=== PATIENT | female | born 1985 | race Caucasian/White ===

== ENCOUNTER → 2017-04-09 | Outpatient (CLI) | payer BC ==
[2017-04-09 19:01] LABS: URINE APPEARANCE CLEAR (CLEAR); URINE BILIRUBIN NEG (NEG); URINE COLOR YELLOW; URINE NITRITE NEG (NEG); URINE PH 6.5 (4.5-7.5); URINE SPECIFIC GRAVITY 1.016 (1.000-1.030); UROBILINOGEN NEG (NEG)
[2017-04-09 19:03] LABS: MANUAL MICROSCOPIC REQUIRED? NO; REVIEW REQ? NO
== END | disposition home or self-care (01) ==
LOC: C.LABSPEC 17:05
PROVIDERS: ATTEND Physician Assistant
DX: R39.9 Unspecified symptoms and signs involving the genitourinary system (principal)

== ENCOUNTER → 2017-05-31 | Outpatient (CLI) | payer BC ==
[2017-05-31 18:02] LABS: URINE APPEARANCE CLEAR (CLEAR); URINE BILIRUBIN NEG (NEG); URINE COLOR YELLOW; URINE NITRITE NEG (NEG); URINE PH 6.5 (4.5-7.5); URINE SPECIFIC GRAVITY 1.011 (1.000-1.030); UROBILINOGEN NEG (NEG)
[2017-05-31 18:04] LABS: MANUAL MICROSCOPIC REQUIRED? NO; REVIEW REQ? NO
== END | disposition home or self-care (01) ==
LOC: C.LABSPEC 17:26
PROVIDERS: ATTEND Obstetrics & Gynecology
DX: Z34.03 Encounter for supervision of normal first pregnancy, third trimester (principal); Z3A.00 Weeks of gestation of pregnancy not specified

== ENCOUNTER → 2017-06-07 | Outpatient (CLI) | payer BC ==
[2017-06-07 17:32] LABS: BASO % 0.3 %; BASO ABS # 0.02 K/uL (0-0.2); COMPLETE YES; EOS % 1.3 %; IG% 0.1 %; LYMPH ABS # 1.87 K/uL (1.2-3.4); MEAN CELL VOLUME 88.7 fL (80-100); MEAN CORPUSCULAR HEMOGLOBIN 31.3 pg (25-34); MEAN CORPUSCULAR HGB CONC 35.3 g/dl (32-36); MEAN PLATELET VOLUME 11.1 fL (7.4-10.4); MONO % 5.8 %; NEUT % 67.5 %; PLATELET COUNT 186 K/uL (130-400); RED BLOOD COUNT 4.06 M/uL (4.2-5.4); WHITE BLOOD COUNT 7.47 K/uL (4.8-10.8)
== END | disposition home or self-care (01) ==
LOC: C.LAB1850 16:31
PROVIDERS: ATTEND Obstetrics & Gynecology
DX: Z34.01 Encounter for supervision of normal first pregnancy, first trimester (principal)

== ENCOUNTER → 2017-06-07 | Outpatient (CLI) | payer BC ==
[2017-06-11 08:03] LABS: CHLAMYDIA TRACH RNA*** NOT DETECTED (NOT DETECTED); GC (NEIS GONORRHOEAE)RNA** NOT DETECTED (NOT DETECTED)
== END | disposition home or self-care (01) ==
LOC: C.LABSPEC 17:35
PROVIDERS: ATTEND Obstetrics & Gynecology
DX: Z34.01 Encounter for supervision of normal first pregnancy, first trimester (principal)

== ENCOUNTER → 2017-08-11 | Outpatient (CLI) | payer BC | END | disposition home or self-care (01) | LOC: C.LAB 07:10 | PROVIDERS: ATTEND Obstetrics & Gynecology | DX: O28.1 Abnormal biochemical finding on antenatal screening of mother (principal); Z3A.00 Weeks of gestation of pregnancy not specified ==

== ENCOUNTER → 2017-10-25 | Outpatient (CLI) | payer OTHER ==
[2017-10-25 10:00] LABS: HEMATOCRIT 36.8 % (37-47)
== END | disposition home or self-care (01) ==
LOC: C.LAB 08:49
PROVIDERS: ATTEND Obstetrics & Gynecology
DX: Z34.02 Encounter for supervision of normal first pregnancy, second trimester (principal)

== ENCOUNTER → 2017-11-03 | Outpatient (CLI) | payer OTHER | END | disposition home or self-care (01) | LOC: C.LAB 07:13 | PROVIDERS: ATTEND Obstetrics & Gynecology | DX: O28.1 Abnormal biochemical finding on antenatal screening of mother (principal) ==

== ENCOUNTER → 2017-12-21 | Outpatient (CLI) | payer OTHER | END | disposition home or self-care (01) | LOC: C.LABSPEC 17:32 | PROVIDERS: ATTEND Obstetrics & Gynecology | DX: Z34.03 Encounter for supervision of normal first pregnancy, third trimester (principal) ==

== ENCOUNTER 2018-01-19 21:49 | Inpatient (IN) | payer OTHER ==
[~2018-01-19] VITALS: Ht 154.9 cm; Wt 58.0 kg
[2018-01-19] MEDS ORDERED: LACTATED RINGER'S 1000ML 1,000 ML IV PRN (22:30)
[2018-01-19] MEDS ORDERED: PRENTAB26 PO (22:41)
[2018-01-19 22:49] VITALS: Ht 154.9 cm; Wt 58.0 kg
[2018-01-19 23:03] LABS: HEMATOCRIT 41.7 % (37-47); HEMOGLOBIN 14.6 g/dL (12.0-16.0); MEAN CELL VOLUME 91.4 fL (80-100); RED CELL DISTRIBUTION WIDTH CV 12.3 % (11.5-14.5); RED CELL DISTRIBUTION WIDTH SD 41.3 fL (36.4-46.3); WHITE BLOOD COUNT 12.33 K/uL (4.8-10.8)
[2018-01-19 23:12] LABS: MEAN PLATELET VOLUME 13.4 fL (7.4-10.4); PLATELET COUNT 120 K/uL (130-400)
[2018-01-20] MEDS ORDERED: OXYTOCIN 30 UNITS/500ML NSS IV ONE (02:17)
[2018-01-20] MEDS ORDERED: BENZOCAINE 20% AER SPR 82.5 GM CAN EXT PRN (03:00)
[2018-01-20] MEDS ORDERED: ACETAMINOPHEN 325 MG TAB PO PRN (03:00)
[2018-01-20] MEDS ORDERED: SUPERCREAM 0.870 % 15GM JAR EXT PRN (03:00)
[2018-01-20] MEDS ORDERED: OXYTOCIN 30 UNITS/500ML NSS IV PRN (03:00)
[2018-01-20] MEDS ORDERED: OXYCODONE/ACETAMINOPHEN 5-325 TAB PO PRN (03:00)
[2018-01-20] MEDS ORDERED: LANOLIN OINT EXT PRN (03:00)
[2018-01-20] MEDS ORDERED: ACETAMINOPHEN/CODEINE 300/30MG TAB PO PRN ×2 (03:00)
[2018-01-20] MEDS ORDERED: HYDROCORTISONE ACETATE 25 MG SUPP PR PRN (03:00)
[2018-01-20] MEDS ORDERED: DIPHTHERIA/TETANUS/PERTUSSIS 0.5 ML SYR/VIAL IM. ONE (03:00)
[2018-01-20 05:50] VITALS: BP 127/81; PULSE 88; TEMP 36.8
--- NOTE | 2018-01-20 06:45 | DELIVERY SUMMARY ---
DATE OF OPERATION: 01/20/2018 VAGINAL DELIVERY NOTE Jessica delivered on 01/20/2018. She presented after spontaneous rupture of membranes at term, group B strep negative, in active labor at 5 cm. She wished to be un-medicated and rapidly progressed to fully dilated. Once there, she pushed well, however, there was a vaginal band of tissue and heart rate was in the 60s for approximately 5 minutes. After failure to improve with oxygen, I did offer and recommend a small midline episiotomy and the patient agreed. Small 1 cm midline episiotomy made with scissors. Baby was then delivered on the next contraction and head was delivered and then mouth and then nares suctioned. Loose nuchal cord passed over the head and then baby delivered without any excessive force. Live vigorous male , clear fluid. Cord clamped and cut. Cord gas was obtained. Cord blood obtained. Placenta removed with gentle traction. Local anesthetic injected and midline episiotomy without extension repaired with 3-0 Vicryl. Estimated blood loss 100 mL. Sponge and instrument counts correct. Rectal exam negative for sutures or defects. IV Pitocin started after delivery of the placenta. I attest to the content of the Intraoperative Record and any orders documented therein. Any exception s are noted below.
--- NOTE | 2018-01-20 07:39 | Progress Note ---
Subjective Jan 20, 2018. Subjective conversation w/ patient, physical exam, lab review Ambulation: ambulating normally Voiding: no voiding problems Diet Tolerance: Regular Diet Lochia: Small Feeding Type: Breast Feeding Objective Vital Signs Date Time Temp Pulse Resp B/P (MAP) Pulse Ox O2 Delivery O2 Flow Rate FiO2 01/20/18 05:50 36.8 88 18 127/81 01/20/18 05:50 Room Air Physical Exam General Appearance: WELL-APPEARING Abdomen: non tender Fundus: Firm Extremities: no calf tenderness Laboratory Results Last 24 Hours Test 01/19/18 22:42 White Blood Count 12.33 K/uL Red Blood Count 4.56 M/uL Hemoglobin 14.6 g/dL Hematocrit 41.7 % Mean Corpuscular Volume 91.4 fL Mean Corpuscular Hemoglobin 32.0 pg Mean Corpuscular Hemoglobin Concent 35.0 g/dl RDW Standard Deviation 41.3 fL RDW Coefficient of Variation 12.3 % Platelet Count 120 K/uL Mean Platelet Volume 13.4 fL Platelet Estimate DECREASED Assessment and Plan Post- Day#: 1 Continue Routine Care: Doing well day #1 no heavy bleeding no extremity pain
[2018-01-20] MEDS: DOCUSATE SODIUM 100 MG CAP PO SCH ×2 (08:18→20:11)
[2018-01-20] MEDS: PRENATAL VITAMIN TAB PO SCH (08:18)
[2018-01-20 08:30] VITALS: BP 127/83; PULSE 75; TEMP 36.5; O2SAT 99
[2018-01-20 12:20] VITALS: BP 135/82; PULSE 76; TEMP 36.7; O2SAT 99
[2018-01-20 15:30] VITALS: BP 119/79; PULSE 75; TEMP 36.8
[2018-01-20] MEDS: IBUPROFEN 600 MG TAB PO PRN (17:13)
[2018-01-20 20:20] VITALS: BP 118/76; PULSE 84; TEMP 36.7; O2SAT 98
[2018-01-21 00:30] VITALS: BP 118/69; PULSE 84; TEMP 36.8; O2SAT 96
--- NOTE | 2018-01-21 06:29 | Progress Note ---
Subjective Jan 21, 2018. Subjective conversation w/ patient, physical exam, chart review, lab review Ambulation: ambulating normally Voiding: no voiding problems Passing Gas: Yes Diet Tolerance: Regular Diet Lochia: Small Feeding Type: Breast Feeding Review of Systems Constitutional: No fever, No chills Respiratory: No cough, No shortness of breath Cardiac: No chest pain, No palpitations Abdomen: No pain, No nausea, No vomiting Female : No dysuria Objective Vital Signs Date Time Temp Pulse Resp B/P (MAP) Pulse Ox O2 Delivery O2 Flow Rate FiO2 01/21/18 00:30 36.8 84 16 118/69 (85) 96 Room Air 01/21/18 00:30 Room Air 01/20/18 20:20 36.7 84 16 118/76 (90) 98 Room Air 01/20/18 15:30 Room Air 01/20/18 15:30 36.8 75 20 119/79 (92) Room Air 01/20/18 12:20 36.7 76 16 135/82 (99) 99 Room Air 01/20/18 08:30 36.5 75 16 127/83 (98) 99 Room Air Physical Exam General Appearance: WELL-APPEARING, WD/WN, NO APPARENT DISTRESS Respiratory/Chest: lungs clear, no accessory muscle use Cardiovascular: regular rate, rhythm, no murmur Abdomen: non tender, soft Fundus: Firm, Relation to Umbilicus (at the level of the u) Extremities: non-tender, normal inspection Laboratory Results Last 24 Hours Test 01/21/18 04:44 Assessment and Plan Post- Day#: 2 Continue Routine Care: 32, F , O+/GBS-/RI, PPD1. Reviewed vital, WNL. Hgb 14.6 on admission, pending this am. No signs or sx of anemia. Patient doing well clinically. Preparing patient for discharge. Plan; 1. Cont pp care; ambulate, support BF, monitor lochia, control pain 2. Discussed dc planning Resident Physician Supervision Note: I was present with Dr. Zuleta during the history and exam. I discussed the case with the resident and agree with the findings and plan as documented in the note. Any exceptions or clarifications are listed here: [None] Documented By: Gianluca Vargas
--- NOTE | 2018-01-21 06:30 | Discharge Instructions ---
Discharge Instructions Date of Service Jan 21, 2018. Admission Reason for Admission: Normal Labor Discharge Discharge Diagnosis / Problem: vaginal de;waqas Discharge Goals Goal(s): Routine recovery after delivery Medications Continue Dispensed Medications: supercream, dermaplast, tucks, lansinoh Activity Recommendations Activity Limitations: per Instructions/Follow-up section . Instructions / Follow-Up Instructions / Follow-Up ACTIVITY RECOMMENDATIONS: * Gradual return to full activity over the next 2-3 weeks. * No lifting - nothing heavier than baby over the next 2-3 weeks. * Do not engage in vigorous exercise, sexual activity or sports until cleared by your physician. * Do not drive or operate any motorized equipment until cleared by your physician. * You may shower/bathe daily. MEDICATIONS: For discomfort or pain, you may use Acetaminophen (Tylenol), Ibuprofen (Advil), or Naproxen (Aleve) following the package directions. For constipation you may use Colace following the package directions. BREAST CARE: If you are not breast feeding: * Wear a supportive bra 24 hours a day for one to two weeks. * Avoid stimulating your breasts and nipples as much as possible during the first few weeks after delivery. * When taking a shower, have the warm water hit your back, not breasts. * When your breasts feel full, apply ice packs. Usually three to four times a day helps ease the discomfort. * Take a mild pain medication (Tylenol / Motrin) when you are uncomfortable. If breast feeding: * Use breast milk to lubricate nipples. Lansinoh cream may be used for sore nipples. You do not need to remove cream prior to breast feeding. If using a different brand of cream, check the label for directions regarding removal of cream prior to nursing. * Wear a supportive bra. * If having problems with breasts or breast feeding, call a managing consultant or your health care provider. EPISIOTOMY CARE: After delivery, if you have an episiotomy (stitches), the following steps will ease discomfort and aid healing. * For the first 24 hours after delivery, place ice packs next to your episiotomy to help reduce swelling. * After the first 24 hour-period, sitz baths, either portable or in the tub, are suggested. A shower with a shower arm sprayed over the episiotomy may be comforting. * Helen care should be done after each voiding and bowel movement. Squirt warm water from a plastic bottle over the perineum (region of the body between the anus and urinary opening) and pat dry. * Use Dermoplast to ease discomfort. Shake container. [place] directly over the episiotomy. Place a Tucks on a clean sanitary pad next to your episiotomy. SPECIAL CARE INSTRUCTIONS: When you are discharged from the hospital, it is important for you to follow the instructions listed below: * During the first week at home, you should be able to care for yourself and your baby. In addition, the usual light household activities are encouraged. * Limit your activities to the way you feel. Do not try to clean the house or move furniture. Be sensible. * If you actively engage in sports and have done so up until the time of your delivery, you may resume these activities as soon as you feel able. This may take up to one month or even longer. Use good judgment. * Continue to take your vitamins for at least six weeks after the of your baby. * Your diet need not be limited unless you were on a special diet before your delivery. Breast-feeding mothers need around 2500 calories per day and at least 64-80 ounces of fluid per day (8 to 10 glasses). * You should eat foods from the four major food groups. Crash diets or fad diets are to be avoided. Eating lean meats, fresh fruits and vegetables, low-fat dairy products, high fiber foods and a regular exercise program, will help you get back to your pre- weight without putting your health at risk. * Constipation is sometimes a problem after delivery. Take a mild laxative as needed. If breast feeding, Milk of Magnesia is acceptable to use. You may use a suppository or Fleets enema if no episiotomy. * A daily shower or tub bath is suggested. Be sure to thoroughly and gently dry the perineum. * A bloody vaginal discharge will usually continue until around four weeks post . A small amount of bleeding may continue for as long as six weeks. Vaginal discharge changes from the bright red bleeding after delivery to pink then brownish and finally yellowish-pink before becoming white and disappearing. * Bleeding may increase with activity. Your first period may come in 4-8 weeks. If you are breast feeding, your period may be delayed even longer. * [place] (sex) can begin whenever both you and your partner feel comfortable and do not have any form of genital infection. It is recommended that you wait at least six weeks for internal and external healing to occur. If you have questions, please talk to your health care practitioner. A condom should be used to prevent infection and . * Foreplay, gentle intercourse and lubrication is very important the first several times to prevent pain. A water-based lubricant such as K-Y jelly or Astroglide may be used. * If you have RH negative blood and your baby is RH positive, you will receive RHOGAM by injection prior to discharge. The nurse will give you a card to keep with you that has the date and place that you received RHOGAM after delivery. * During your care, you had a Rubella screen done to check for the presence of rubella antibodies in your blood. If your test was negative, you will receive a Rubella vaccine prior to discharge. This vaccine may cause a fever, soreness at the injection site and flu-like symptoms. If these symptoms persist, notify your health care practitioner. is not advised for one month after a Rubella vaccine. * Verbalizes understanding of car seat law as reviewed with patient nursing. * Car Seat hand-out given and reviewed with patient by nursing. * Shaken baby information reviewed with patient by nursing. Call you doctor if: * Heavy bleeding (saturating several pads an hour) or passing clots the size of your fist. * A fever >101 degrees F (38.3 degrees C) on two occasions four hours apart and /or chills. * Unusual pain in the pelvic or vaginal areas. * "Baby Blues" lasting longer than two weeks. If you have any questions or concerns, call your health care practitioner at . FOLLOW UP VISIT: * Please call the office at to schedule a 6 week examination. It is important you keep this appointment. It is important for you to make arrangements for either yearly or twice yearly check-ups thereafter. Current Hospital Diet Patient's current hospital diet: Regular OB Diet Discharge Diet Recommended Diet: Regular Diet, Regular OB Diet Pending Studies Studies pending at discharge: no Medical Emergencies . Who to Call and When: Medical Emergencies: If at any time you feel your situation is an emergency, please call 911 immediately. . Non-Emergent Contact Non-Emergency issues call your: Primary Care Provider, Puppy Sitter . . "Provider Documentation" section prepared by Ricardo Zuleta. .
[2018-01-21] MEDS: IBUPROFEN 600 MG TAB PO PRN ×2 (06:39→20:00)
[2018-01-21 07:14] LABS: HEMATOCRIT 34.5 % (37-47); HEMOGLOBIN 12.1 g/dL (12.0-16.0)
[2018-01-21 08:00] VITALS: O2SAT 97
[2018-01-21 08:06] VITALS: O2SAT 97
[2018-01-21 08:12] VITALS: BP 119/74; PULSE 74; TEMP 36.8; O2SAT 97
[2018-01-21] MEDS: PRENATAL VITAMIN TAB PO SCH (08:17)
[2018-01-21] MEDS: DOCUSATE SODIUM 100 MG CAP PO SCH ×2 (08:17→19:59)
[2018-01-21 15:15] VITALS: BP 112/76; PULSE 73; TEMP 37.2; O2SAT 98
[2018-01-21] MEDS ORDERED: BISACODYL 5 MG TABEC PO SCH (20:00)
[2018-01-21 23:35] VITALS: BP 112/74; PULSE 85; TEMP 36.5; O2SAT 98
--- NOTE | 2018-01-22 06:58 | Progress Note ---
Subjective Jan 22, 2018. Subjective conversation w/ patient, physical exam, chart review, lab review Ambulation: ambulating normally Voiding: no voiding problems Passing Gas: Yes Diet Tolerance: Regular Diet Lochia: Small Feeding Type: Breast Feeding Review of Systems Constitutional: No fever, No chills Respiratory: No cough, No shortness of breath Cardiac: No chest pain, No palpitations Abdomen: No pain, No nausea, No vomiting Female : No dysuria Objective Vital Signs Date Time Temp Pulse Resp B/P (MAP) Pulse Ox O2 Delivery O2 Flow Rate FiO2 01/21/18 23:35 98 Room Air 01/21/18 23:35 36.5 85 18 112/74 (87) 98 Room Air 01/21/18 15:15 37.2 73 16 112/76 (88) 98 Room Air 01/21/18 15:15 98 Room Air 01/21/18 08:12 36.8 74 14 119/74 (89) 97 Room Air 01/21/18 08:06 97 Room Air 01/21/18 08:00 97 Room Air Physical Exam General Appearance: WELL-APPEARING, WD/WN, NO APPARENT DISTRESS Respiratory/Chest: lungs clear, no respiratory distress Cardiovascular: regular rate, rhythm, no murmur Abdomen: non tender, soft Fundus: Firm, Relation to Umbilicus (1 cm below u) Extremities: non-tender, normal inspection Laboratory Results Last 24 Hours Test 01/21/18 07:02 01/22/18 06:39 Hemoglobin 12.1 g/dL Hematocrit 34.5 % Assessment and Plan Post- Day#: 2 Continue Routine Care: Resident Physician Supervision Note: I interviewed and examined the patient. Discussed with Dr. Justus Zuleta and agree with findings and plan as documented in the note. Any exceptions or clarifications are listed here: [None] Documented By: Marilia Hutchinson Vilma 32, F , O+/GBS-/RI, PPD2. Reviewed vital, WNL. Hgb 14.6 on admission---12.1 on 01/21, pending this am. No signs or sx of anemia. Patient doing well clinically. Preparing patient for discharge. Plan; 1. Cont pp care; ambulate, support BF, monitor lochia, control pain 2. Discussed dc planning
[2018-01-22] MEDS ORDERED: BISACODYL 10 MG SUPP PR PRN (07:00)
[2018-01-22 07:01] LABS: HEMATOCRIT 35.2 % (37-47); HEMOGLOBIN 12.3 g/dL (12.0-16.0); MEAN CELL VOLUME 91.9 fL (80-100); MEAN CORPUSCULAR HEMOGLOBIN 32.1 pg (25-34); MEAN CORPUSCULAR HGB CONC 34.9 g/dl (32-36); MEAN PLATELET VOLUME 11.7 fL (7.4-10.4); PLATELET COUNT 120 K/uL (130-400); RED CELL DISTRIBUTION WIDTH CV 12.6 % (11.5-14.5); RED CELL DISTRIBUTION WIDTH SD 42.1 fL (36.4-46.3); WHITE BLOOD COUNT 9.25 K/uL (4.8-10.8)
[2018-01-22] MEDS: DOCUSATE SODIUM 100 MG CAP PO SCH (07:57)
[2018-01-22] MEDS: PRENATAL VITAMIN TAB PO SCH (07:57)
[2018-01-22 08:00] VITALS: BP 125/80; PULSE 87; TEMP 36.8
[2018-01-22 12:10] VITALS: BP_DIAS 80; PULSE 87; TEMP 36.8
== END 2018-01-22 12:12 | disposition home or self-care (01) | DRG 775 ==
LOC: C.LD 21:49 → C.OPB 21:49 → C.LD 22:31 → C.OBG 01-20 05:39
PROVIDERS: ADMIT Obstetrics & Gynecology; ATTEND Obstetrics & Gynecology
PROC: 0W8NXZZ Division of Female Perineum, External Approach (ICD-10-PCS; principal; 2018-01-20)
PROC: 10E0XZZ Delivery of Products of Conception, External Approach (ICD-10-PCS; principal; 2018-01-20)
DX: O69.81X0 Labor and delivery complicated by cord around neck, without compression, not applicable or unspecified (principal); O76 Abnormality in fetal heart rate and rhythm complicating labor and delivery; Z3A.40 40 weeks gestation of pregnancy; Z37.0 Single live birth

== ENCOUNTER 2021-05-23 23:34 | Inpatient (IN) ==
[2021-05-24] MEDS ORDERED: LACTATED RINGER'S 1,000 ML IV SCH (00:30)
[2021-05-24] MEDS ORDERED: CITRIC ACID/SODIUM CITRATE 15 ML UDC PO ONE (00:45)
[2021-05-24] MEDS ORDERED: ceFAZolin 2000MG 2,000 MG/15 ML SYR IV ONE (00:45)
[2021-05-24] MEDS ORDERED: AZITHROMYCIN 500 MG in DEXTROSE 5% 250 ML IV ONE (00:45)
[2021-05-24] MEDS ORDERED: MoRPHine SULFATE PF 1 MG/ML 10 ML AMP/VIAL ONE (00:51)
--- NOTE | 2021-05-24 01:16 | History & Physical Report ---
Date of Service May 24, 2021 Assessment & Plan (1) Breech presentation: (2) SROM (spontaneous rupture of membranes): Plan: 35 y/o at 39 wga presenting w/ SROM, breech presentation VSS Fetus cat 1 SROM - with breech presentation, plan for CS. Discussed indications, risks, benefits, alternatives with risks including infection, bleeding, injury to adjacent structures (bowel, bladder, ureters, blood vessels, nerves, baby), possible need for blood transfusion and/or life saving hysterectomy, VTE. Consent reviewed in detail w/ pt and signed after all questions answered to her satisfaction. Pt notes rash as a child with penicillin, denies hx anaphylaxis. Plan for ancef and azithromycin for antibx ppx Admission and Anticipated Discharge Date Admission Date: May 24, 2021 History of Present Illness Chief Complaint: LOF Primary Care Provider: David Reinoso DO 35 y/o at 39 wga w/ ROSITA by LMP c/w 1st tri US presents to L&D w/ c/o LOF since 1030 this evening. +FM and ctx that began after LOF, denies VB. 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 Hx: G1 2018 at 40 wks G2 SAB G3 current Menarche 15, q27-29d cycles Denies hx STIs 03/2020 neg cytology, denies hx abnl pap Allergies Allergy/AdvReac Type Severity Reaction Status Date / Time Penicillins Allergy Unknown Rash Verified 05/24/21 00:14 Home Medications Medication Instructions Recorded Confirmed Type albuterol sulfate 90 mcg/actuation 2 puffs INH QID PRN #8.5 gm 12/16/19 05/24/21 Rx aerosol inhaler prenat.vits,luanne,[id number] 1 tab PO PM 10/11/20 05/24/21 History cetirizine 10 mg capsule (Zyrtec) 10 mg PO PM cap 03/22/21 05/24/21 History acetaminophen 325 mg tablet 325 mg PO QID PRN 05/18/21 05/24/21 History (Tylenol) calcium carbonate 500 mg calcium 2,500 mg PO PM 05/18/21 05/24/21 History (1,250 mg) chewable tablet simethicone 80 mg chewable tablet 80 mg PO BID PRN 05/18/21 05/24/21 History Patient History Medical History Asthma Cystic fibrosis carrier GERD (gastroesophageal reflux disease) r/t Hx of varicella Migraine Seasonal allergies Surgical History History of oral surgery teeth extractions Nausea and vomiting after administration of anesthetic agent Family History Grandfather (Maternal) Bladder cancer Grandmother (Maternal) Osteoporosis Glaucoma Grandmother (Paternal) Osteoporosis Father Hypertension Kidney stones Dyslipidemia Prostate cancer Grandfather (Paternal) Hypertension Cardiac disorder Diabetes Coronary heart disease Myocardial infarction Denies family history of Ovarian cancer Breast cancer Lung cancer Colorectal cancer Stroke Social History Smoking Status: Never smoker Second Hand Exposure: No; Do You Dip or Chew Tobacco: No; Tobacco Cessation Education Requested by Patient: No Hx Alcohol Use: No Hx Substance Use: No Preferred Language: Bel[place]ian Communication Ability: Effective Visual Impairment: Limited Hearing Ability: Normal Fountain Clerk Required: No Beliefs That Will Affect Care: None marital status: marital status details: [place] (35) [phone] Current Living Situation: Spouse and Family Current Living Situation Comment: Lives with and son current occupational status: employed current occupation: Psychologist How many Children do You have: 1 How many Children do You have Comment: 1 son with girl 36 weeks 05/06/2021 Other Information That Helps Us Care for You: No Feels Safe at Home: Yes Safety Concerns: Feels Safe At This Time Childhood Exposure to Second-Hand Smoke: No caffeine: Yes Dental Care, Regularly: No Physical Activity Frequency: 3-4 Times per Week Seatbelt Use: always Sunscreen Use: Yes Assistive Devices: Glasses Physical Exam Constitutional: WD/WN, vitals as above Respiratory: normal respiratory effort; no respiratory distress and no labored breathing Psychiatric: A+Ox3, euthymic affect Genitourinary: OB Exam Abdomen: + breech (confirmed by BSUS) Manual OB Exam: + cervical dilation 3 cm, + cervical effacement 50%, + station -2 and + amniotic fluid (SSE + nitrazine, pooling, ferning) OB Exam Monitor Tracing: + external FHT monitor used, + external uterine monitor used (q10) and + category I (125/mod/+accel/-decel) Results & Data ([facility]) Vital Signs (Past 12 Hours) Vital Signs Temp Pulse Resp BP 05/23/21 23:55 98.2 F 81 18 125/80 05/23/21 23:48 81 125/80 Laboratory Results OB Labs: Blood Type O Positive 10/19/20 Antibody Screen NEGATIVE 10/19/20 Hemoglobin 11.6 g/dL (12.0-16.0) L 03/07/21 Hematocrit 33.6 % (37-47) L 03/07/21 Mean Corpuscular Volume 91.0 fL (80-100) 10/19/20 Platelet Count 176 K/uL (130-400) 10/19/20 Rubella IgG Antibody Immune (Immune) 10/19/20 Rapid Plasma Reagin Nonreactive (Nonreactive) 10/19/20 Hepatitis B Surface Antigen Neg (Neg) 10/19/20 HIV (1&2) Ab and P24 Ag, 4th Gener Neg (Neg) 10/19/20 Glucose 1 Hour 50 gm Load 116 mg/dl (70-130) 03/07/21 Maternal Serum Alpha Fetoprotein 34.9 ng/mL 12/14/20 OB Optional Labs: Chlamydia trachomatis RNA NOT DETECTED (NOT DETECTED) 10/19/20 Neisseria gonorrhoeae RNA NOT DETECTED (NOT DETECTED) 10/19/20 Alpha Fetoprotein Triple Screen SEE NOTE 12/14/20 Labs Reviewed: Prior - CF carrier, FOB neg low risk cfdna neg afp GBS neg Diagnostic Findings Anterior plac Coding Level of Care Code None Diagnoses Breech presentation O32.1XX0 SROM (spontaneous rupture of membranes)
--- NOTE | 2021-05-24 01:32 | Anesthesiology Consultation ---
Date of Service May 24, 2021 Assessment & Plan (1) Encounter for pre-operative examination: Chart Review Chart Review: Acceptable Risk for Surgery (Urgent) History Surgery Operation Date: 05/24/21 00:25 Proposed Procedures p Section in LD - Janina Whiteside MD Height/Weight Height: 5 ft 1 in Weight: 60.328 kg Allergies Allergy/AdvReac Type Severity Reaction Status Date / Time Penicillins Allergy Unknown Rash Verified 05/24/21 00:14 Medications Home Medications Medication Instructions Recorded Confirmed Last Taken albuterol sulfate 90 mcg/actuation 2 puffs INH QID PRN #8.5 gm 12/16/19 05/24/21 Unknown aerosol inhaler prenat.vits,luanne,[id number] 1 tab PO PM 10/11/20 05/24/21 05/23/21 08:00 cetirizine 10 mg capsule (Zyrtec) 10 mg PO PM cap 03/22/21 05/24/21 05/23/21 08:00 acetaminophen 325 mg tablet 325 mg PO QID PRN 05/18/21 05/24/21 Unknown (Tylenol) calcium carbonate 500 mg calcium 2,500 mg PO PM 05/18/21 05/24/21 05/23/21 08:00 (1,250 mg) chewable tablet simethicone 80 mg chewable tablet 80 mg PO BID PRN 05/18/21 05/24/21 05/23/21 08:00 Active Medications Generic Name Dose Route Start Last Admin Trade Name Freq PRN Reason Stop Dose Admin Azithromycin 500 mg/ Dextrose 255 mls @ 127.5 mls/hr 05/24/21 00:45 05/24/21 01:08 IV 05/24/21 02:44 127.5 mls/hr ONE ONE Administration NPO Date Last Intake of Fluids: 05/23/21 Time Last Intake of Fluids: 20:00 Date Last Intake of Solids: 05/23/21 Time Last Intake of Solids: 20:00 Past Medical History Medical History Asthma Cystic fibrosis carrier GERD (gastroesophageal reflux disease) r/t Hx of varicella Migraine Seasonal allergies Exercise / Class Metabolic Activity II 4-5 Yardwork/Stairs/Walk up hill Past Family History Family History Grandfather (Maternal) Bladder cancer Grandmother (Maternal) Osteoporosis Glaucoma Grandmother (Paternal) Osteoporosis Father Hypertension Kidney stones Dyslipidemia Prostate cancer Grandfather (Paternal) Hypertension Cardiac disorder Diabetes Coronary heart disease Myocardial infarction Denies family history of Ovarian cancer Breast cancer Lung cancer Colorectal cancer Stroke Past Surgical History Surgical History History of oral surgery teeth extractions Nausea and vomiting after administration of anesthetic agent Social History Smoking Status: Never smoker Do You Dip or Chew Tobacco: No Hx Alcohol Use: No Alcohol type: beer and wine Hx Substance Use: No substance use type: does not use Physical Exam Vital Signs Last Vital Signs Temp 36.8 C 05/23/21 23:55 Pulse 81 05/23/21 23:55 Resp 18 05/23/21 23:55 BP 125/80 05/23/21 23:55 Testing Laboratory Results pending
[2021-05-24] MEDS ORDERED: LIDOCAINE 2% MPF LOCAL 5 ML VIAL INFIL ONE (01:35)
[2021-05-24] MEDS ORDERED: PROPOFOL IV EMULSION 10 MG/ML 20 ML VIAL IV ONE (01:35)
[2021-05-24] MEDS ORDERED: METOCLOPRAMIDE HCL INJ 5 MG/ML 2 ML VIAL ONE (01:35)
[2021-05-24] MEDS ORDERED: ONDANSETRON INJ 2 MG/ML 2 ML VIAL ONE (01:35)
[2021-05-24 01:42] LABS: Hematocrit (blood only) 33.9 % (37-47); Hemoglobin 11.9 g/dL (12.0-16.0); Mean Corpuscular Hemoglobin 32.4 pg (25-34); Mean Corpuscular Hgb Conc 35.1 g/dL (32-36); Mean Corpuscular Volume 92.4 fL (80-100); Mean Platelet Volume 12.4 fL (7.4-10.4); Platelet Count 107 K/uL (130-400); RDW Coefficient of Variation 12.4 % (11.5-14.5); RDW Standard Deviation 41.9 fL (36.4-46.3); Red Blood Count 3.67 M/uL (4.2-5.4); White Blood Count 8.56 K/uL (4.8-10.8)
[2021-05-24 01:43] LABS: Basophils # (auto) 0.02 K/uL (0-0.2); Basophils % (auto) 0.2 %; Eosinophils # (auto) 0.08 K/uL (0-0.5); Eosinophils % (auto) 0.9 %; Immature Granulocytes # (auto) 0.02 K/uL (0.00-0.02); Immature Granulocytes % (auto) 0.2 %; Lymphocytes # (auto) 1.64 K/uL (1.2-3.4); Lymphocytes % (auto) 19.2 %; Monocytes # (auto) 0.59 K/uL (0.11-0.59); Monocytes % (auto) 6.9 %; Neutrophils # (auto) 6.21 K/uL (1.4-6.5); Neutrophils % (auto) 72.6 %; Platelet Estimate Decreased (Normal)
[2021-05-24] MEDS ORDERED: diphenhydrAMINE 50 MG/ML VIAL IV PRN ×2 (02:01→20:01)
[2021-05-24] MEDS ORDERED: MoRPHine SULFATE PF 1 MG/ML 10 ML AMP/VIAL INT SPINAL ONE (02:01)
[2021-05-24] MEDS ORDERED: NALOXONE HCL 0.4 MG/1 ML VIAL/CARP IV PRN (02:01)
[2021-05-24] MEDS ORDERED: ePHEDrine sulfate 50 MG/ML AMP IV PRN (02:01)
[2021-05-24] MEDS ORDERED: NALOXONE HCL 0.08 MG in SYRINGE 1.8 ML IV PRN (02:01)
[2021-05-24] MEDS ORDERED: NALBUPHINE HCL INJ 10 MG/ML AMP IV PRN (02:01)
[2021-05-24] MEDS ORDERED: KETOROLAC 30 MG/ML VIAL IV PRN ×2 (02:01→20:01)
[2021-05-24] MEDS ORDERED: ONDANSETRON INJ 2 MG/ML 2 ML VIAL IV PRN ×2 (02:01→20:01)
[2021-05-24] MEDS ORDERED: LACTATED RINGER'S 500 ML IV PRN (02:01)
[2021-05-24] MEDS ORDERED: PROMETHAZINE HCL 12.5 MG in SODIUM CHLORIDE 0.9% 50 ML IV PRN (02:01)
[2021-05-24] MEDS ORDERED: MEPERIDINE HCL 25 MG/ML CARP/VIAL IV PRN (02:01)
[2021-05-24] MEDS ORDERED: NALOXONE HCL 1 MG in SODIUM CHLORIDE 0.9% 1000ML 1,000 ML IV PRN (02:01)
[2021-05-24] MEDS ORDERED: DC INTRASPINAL MORPHINE SCH (02:15)
[2021-05-24] MEDS ORDERED: SODIUM CHLORIDE 0.9% 1000ML 1,000 ML IV SCH (02:15)
[2021-05-24] MEDS ORDERED: NO NARCOTICS OR SEDATIVES SCH (02:15)
--- NOTE | 2021-05-24 03:17 | Operative Report ---
PG Post Operative Report Pre & Post Diagnosis Operation Date: 05/24/21 00:25 Pre-Op Diagnosis: [facility] Intrauterine at 39 weeks; Breech Presentation; Spontaneous Rupture of Membranes Post-Op Diagnosis: [facility] Intrauterine at 39 weeks; Breech Presentation; Spontaneous Rupture of Membranes I identified the patient and participated in the time-out.: Yes Procedure Operation Date: 05/24/21 00:25 Actual Procedures p Primary Low Transverse Section in - Janina Whiteside MD Surgeon Janina Whiteside MD Resident Care Spec Devante Crain RN Estimated Blood Loss 500 Findings Consistent with Post-Op Diagnosis Normal appearing uterus, bilateral fallopian tubes, ovaries. Viable female infant with APGARs of 9 and 9 at 1 and 5 minutes, respectively Fluids 2800cc crystalloid, 400cc urine output by zapata catheter Specimens Cord blood Drains Zapata draining clear urine Anesthesia Type L&D Only Epidural Exists Complications none Disposition Accompanied Patient To Recovery: Yes Disposition: L&D Indications 35 y/o at 39 wga presented early this morning with complaints of leaking of fluid with beginning of contractions shortly thereafter. Patient was known to have breech fetus and had undergone failed version attempt previously. On arrival, she was found to be grossly ruptured and still breech by US. As such, recommendation was for delivery. Description of Procedure The patient was taken to the operating room after consents were ensured. The patient was properly identified. Spinal anesthesia was obtained without difficulty. The patient was placed in a dorsal supine position with left lateral tilt, then prepped and draped in normal sterile fashion. Surgical time out was performed. Antibiotics were given for prophylaxis. Anesthesia was tested to ensure adequate surgical levels. Pfannenstiel skin incision was performed and carried down to the underlying fascia with a bovie. The fascia was then nicked in the midline and extended laterally with pickradha and Brown scissors. Superior portion of the fascia was grasped with Kochers x2 and elevated off the underlying rectus muscles using blunt dissection. Inferior portion of the fascia was then grasped with Mynor clamps x2 and also elevated off the underlying muscles with blunt dissection. Midline was identified. The peritoneum was then entered and extended to provide adequate room for delivery of baby. The hand was inserted into the abdomen, uterus was noted to be clear of adhesions. Bladder blade was inserted, bladder flap was created in the usual fashion. A low transverse uterine incision was made in the uterus and extended bluntly in a superior to inferior fashion with clear fluid at the time of entry. breech was grasped and elevated to the hysterotomy. hips delivered spontaneously. Moist blue towel was wrapped around the torso and fundal pressure was applied to deliver fetus to the level of the scapula. Arms were swept across the chest individually and head spontaneously delivered afterward. Nose and mouth were bulb suctioned on the surgical field. The cord was double clamped and cut, baby was handed off to awaiting pediatrics staff. Cord segment and blood were obtained. Placenta was then expressed from the uterus. The uterus was exteriorized. Several passes were made inside the uterus to remove the remaining membranes. Attention was then turned to the hysterotomy, which was then closed with a running locked suture of 0 Vicryl on a CTX needle. An imbricating layer was then performed using 0-Monocryl. There was noted to be good hemostasis. The posterior cul-de-sac was then inspected and cleaned of clot and debris. The hysterotomy was again inspected and noted to be hemostatic. The uterus was returned to the abdomen. The right and left pericolic gutters were cleaned of all clot and debris. The hysterotomy was again noted to be hemostatic. Space of Retzius was noted to be hemostatic. The fascia was then closed with a running suture of 0 Vicryl on a CT1 needle. Subcutaneous tissue was copiously irrigated and noted to be hemostatic. Subcutaneous tissue was re-approximated using 2-0 plain gut. The skin was then closed with a running suture of 3-0 Monocryl in a subcuticular fashion. At termination of the procedure, the fundal pressure was applied and a moderate amount of lochia was expressed. Pressure dressing was applied to the patient. She tolerated the procedure well. All sponge, needle, instrument counts were correct x 2. I attest to the content of the Intraoperative Record and any orders documented therein. Any exceptions are noted below. OB Procedure charges OB Charges [id number] C/S
[2021-05-24] MEDS ORDERED: HYDROCORTISONE ACETATE 25 MG SUPP PR PRN (04:33)
[2021-05-24] MEDS ORDERED: MAGNESIUM HYDROXIDE SUSP 30 ML UDC PO PRN (04:33)
[2021-05-24] MEDS ORDERED: DIPHTHERIA/TETANUS/PERTUSSIS 0.5 ML SYR/VIAL IM ONE (04:33)
[2021-05-24] MEDS ORDERED: SUPERCREAM 0.870% 15 GM JAR EXT PRN (04:33)
[2021-05-24] MEDS ORDERED: BENZOCAINE 20% AER SPR 82.5 GM CAN EXT PRN (04:33)
[2021-05-24] MEDS ORDERED: ALBUTEROL HFA 8 GM INHALER INH PRN (04:33)
[2021-05-24] MEDS ORDERED: SENNA 8.6 MG TAB PO PRN (04:33)
[2021-05-24] MEDS ORDERED: OXYTOCIN 20 UNITS in LACTATED RINGER'S 1,000 ML IV SCH (05:00)
[2021-05-24] MEDS: LACTATED RINGER'S 1,000 ML IV SCH ×4 (07:25→12:45)
[2021-05-24] MEDS: SIMETHICONE 80 MG CHEW PO SCH ×4 (07:44→20:50)
[2021-05-24] MEDS: PRENATAL VITAMIN 1 TAB PO SCH (07:44)
[2021-05-24] MEDS: DOCUSATE SODIUM 100 MG CAP PO SCH ×2 (07:44→20:50)
[2021-05-24] MEDS: FERROUS SULFATE 325 MG TAB PO SCH (07:44)
[2021-05-24] MEDS ORDERED: diphenhydrAMINE Capsule 25 MG CAP PO PRN (20:01)
[2021-05-24] MEDS ORDERED: PROMETHAZINE HCL 25 MG in SODIUM CHLORIDE 0.9% 50 ML IV PRN (20:01)
[2021-05-25] MEDS: IBUPROFEN 600 MG TAB PO PRN ×4 (03:58→18:36)
[2021-05-25] MEDS: oxyCODONE/ACETAMINOPHEN 5mg/325mg TAB PO PRN ×4 (03:58→18:36)
--- NOTE | 2021-05-25 06:35 | Anesthesiology Progress Note ---
Date of Service May 25, 2021 Anesthesia Post Procedure Vital Signs Vital Signs: Temp Pulse Resp BP Pulse Ox 05/24/21 23:30 36.7 C 86 16 107/73 99 05/24/21 19:22 37.1 C 73 16 111/68 100 05/24/21 19:00 16 100 05/24/21 18:00 16 99 05/24/21 17:00 16 99 05/24/21 15:55 16 99 05/24/21 15:53 36.8 C 84 16 107/71 99 05/24/21 14:00 16 100 05/24/21 13:00 18 99 05/24/21 12:45 36.8 C 75 18 123/74 100 05/24/21 12:00 16 98 05/24/21 11:00 18 98 05/24/21 10:20 16 100 05/24/21 09:00 18 100 05/24/21 08:00 18 100 05/24/21 07:45 36.5 C 74 18 120/77 100 05/24/21 07:15 16 99 Pain Intensity Abdomen: Pain Intensity: 4 Transfer of Care Handoff Completed per policy Notes Mental Status: alert / awake / arousable Patient Amnestic to Procedure: Yes Nausea / Vomiting: adequately controlled Pain: adequately controlled Airway Patency, RR, SpO2: stable & adequate BP & HR: stable & adequate Hydration State: stable & adequate Neuraxial Anesthesia: was administered and sensory block is resolving Anesthetic Complications: no major complications apparent
--- NOTE | 2021-05-25 07:09 | Obstetrical Progress Note ---
Date of Service <Lon Kebede DO - Last Filed: 05/25/21 08:18> May 25, 2021 Assessment & Plan <Lon Kebede DO - Last Filed: 05/25/21 08:18> (1) Encounter for care and examination after delivery: s/p C/S POD1 - O+, GBS-, RI. - Vitals WNL. - Hgb 11.9 yesterday. - Pain controlled on ibuprofen and Percocet. - Switched patient to a regular diet starting with light solid food. Will continue to monitor/ask patient for passage of gas. - Continue to monitor ambulation, eating, progress. <Aditya Knight MD - Last Filed: 05/26/21 10:32> (1) Encounter for care and examination after delivery: Subjective <Lon Kebede DO - Last Filed: 05/25/21 08:18> Ambulation: ambulating normally Voiding: no voiding problems Passing Gas:: No (Feeling of gas then dissipates. ) Diet Tolerance:: clear liquids Lochia:: Small Feeding Type:: breast feeding Current Pain Level(1-10): 0 (controlled on pain medication. ) Review of Systems Denies fever, chills, sweats Denies shortness of breath, difficulty breathing, chest pain, palpitations, chest pressure. Denies breast pain. Denies dysuria. Denies headache or changes in vision Physical Exam <Lon Kebede DO - Last Filed: 05/25/21 08:18> General: Alert, oriented. No acute distress. Cardiac: Regular rate and rhythm, no murmurs/rubs/gallops. Respiratory: Clear to auscultation bilaterally a/p, no wheezes/rales/rhonchi. No increased work of breathing. Symmetrical chest rise. No respiratory distress. Abdomen: Soft, slightly tender in lower quadrants, nondistended. Bowel sounds present. Uterus: Uterine fundus firm, palpable 3 cm below umbilicus. Surgical scar clean and healing well. Lower Extremities: No lower extremity edema or swelling. No deep calf pain. Jena's negative bilaterally Results & Data ([facility]) <Lon Dillardgilbertsuyapa - Last Filed: 05/25/21 08:18> Vital Signs (Past 12 Hours) Vital Signs Temp Pulse Resp BP Pulse Ox 05/24/21 23:30 36.7 C 86 16 107/73 99 05/24/21 19:22 37.1 C 73 16 111/68 100 <Aditya Knight MD - Last Filed: 05/26/21 10:32> Co-Signing Physician Notes Patient seen and evaluated and agree with the above findings and plan. Resident Activity Tracking <Lon Kebede DO - Last Filed: 05/25/21 08:18> Resident Involvement: Resident Care Provided Care Provided: OB Delivery
[2021-05-25 07:31] LABS: Hematocrit (blood only) 30.7 % (37-47); Hemoglobin 10.6 g/dL (12.0-16.0); Mean Corpuscular Hemoglobin 32.2 pg (25-34); Mean Corpuscular Hgb Conc 34.5 g/dL (32-36); Mean Corpuscular Volume 93.3 fL (80-100); Mean Platelet Volume 12.7 fL (7.4-10.4); Platelet Count 104 K/uL (130-400); RDW Coefficient of Variation 12.4 % (11.5-14.5); RDW Standard Deviation 41.9 fL (36.4-46.3); Red Blood Count 3.29 M/uL (4.2-5.4); White Blood Count 9.05 K/uL (4.8-10.8)
[2021-05-25 07:42] LABS: Basophils # (auto) 0.01 K/uL (0-0.2); Basophils % (auto) 0.1 %; Eosinophils # (auto) 0.08 K/uL (0-0.5); Eosinophils % (auto) 0.9 %; Immature Granulocytes # (auto) 0.02 K/uL (0.00-0.02); Immature Granulocytes % (auto) 0.2 %; Lymphocytes # (auto) 1.01 K/uL (1.2-3.4); Lymphocytes % (auto) 11.2 %; Monocytes # (auto) 0.39 K/uL (0.11-0.59); Monocytes % (auto) 4.3 %; Neutrophils # (auto) 7.54 K/uL (1.4-6.5); Neutrophils % (auto) 83.3 %
[2021-05-25] MEDS: DOCUSATE SODIUM 100 MG CAP PO SCH ×2 (07:52→20:26)
[2021-05-25] MEDS: SIMETHICONE 80 MG CHEW PO SCH ×4 (07:52→20:25)
[2021-05-25] MEDS: FERROUS SULFATE 325 MG TAB PO SCH (07:52)
[2021-05-25] MEDS: PRENATAL VITAMIN 1 TAB PO SCH (07:52)
[2021-05-25] MEDS ORDERED: bisacodyL 5 MG TABEC PO SCH (20:00)
[2021-05-26] MEDS ORDERED: bisacodyL 10 MG SUPP PR PRN (03:08)
[2021-05-26] MEDS: oxyCODONE/ACETAMINOPHEN 5mg/325mg TAB PO PRN ×2 (04:15→08:24)
[2021-05-26] MEDS: IBUPROFEN 600 MG TAB PO PRN ×2 (04:15→08:23)
--- NOTE | 2021-05-26 06:23 | Obstetrical Progress Note ---
Date of Service <Lon Kebede DO - Last Filed: 05/26/21 07:26> May 26, 2021 Assessment & Plan <Lon Kebede DO - Last Filed: 05/26/21 07:26> (1) Encounter for care and examination after delivery: s/p C/S POD1 - O+, GBS-, RI. - Vitals WNL. - Hgb 11.9 yesterday. - Pain controlled on ibuprofen and Percocet. - Discussed discharge with the patient. Patient would like to go home today if possible. <Allison Aldrich MD, FACOG - Last Filed: 05/26/21 07:31> (1) Encounter for care and examination after delivery: Subjective <Lon Kebede DO - Last Filed: 05/26/21 07:26> Ambulation: ambulating normally Voiding: no voiding problems Passing Gas:: Yes Diet Tolerance:: regular diet Lochia:: Small Feeding Type:: breast feeding Current Pain Level(1-10): 0 Review of Systems Denies fever, chills, sweats Denies shortness of breath, difficulty breathing, chest pain, palpitations, chest pressure. Denies breast pain. Denies dysuria. Denies headache or changes in vision Physical Exam <Lon Kebede DO Last Filed: 05/26/21 07:26> General: Alert, oriented. No acute distress. Cardiac: Regular rate and rhythm, no murmurs/rubs/gallops. Respiratory: Clear to auscultation bilaterally a/p, no wheezes/rales/rhonchi. No increased work of breathing. Symmetrical chest rise. No respiratory distress. Abdomen: Soft, slightly tender in lower quadrants, nondistended. Bowel sounds present. Uterus: Uterine fundus firm, palpable 3 cm below umbilicus. Surgical scar clean and healing well. Lower Extremities: No lower extremity edema or swelling. No deep calf pain. Jena's negative bilaterally Results & Data ([facility]) <Lon Kebede DO - Last Filed: 05/26/21 07:26> Vital Signs (Past 12 Hours) Vital Signs Temp Pulse Resp BP 05/26/21 00:40 36.7 C 84 18 108/73 <Allison Aldrich MD, FACOG - Last Filed: 05/26/21 07:31> Co-Signing Physician Notes Resident Physician Supervision Note: I interviewed and examined the patient. Discussed with Dr. Kebede and agree with findings and plan as documented in the note. Any exceptions or clarifications are listed here: Doing well. Instructions given . Plan d/c home later today. Documented By: Allison Aldrich MD, FACOG Resident Activity Tracking <Lon Kebede DO - Last Filed: 05/26/21 07:26> Resident Involvement: Resident Care Provided Care Provided: OB Delivery
[2021-05-26 06:42] LABS: Hematocrit (blood only) 30.4 % (37-47); Hemoglobin 10.5 g/dL (12.0-16.0)
[2021-05-26] MEDS: SIMETHICONE 80 MG CHEW PO SCH (08:23)
[2021-05-26] MEDS: PRENATAL VITAMIN 1 TAB PO SCH (08:23)
[2021-05-26] MEDS: FERROUS SULFATE 325 MG TAB PO SCH (08:23)
[2021-05-26] MEDS: DOCUSATE SODIUM 100 MG CAP PO SCH (08:23)
--- NOTE | 2021-05-29 16:11 | Discharge Summary ---
Date of Service May 29, 2021 Admission HPI Per Admitting Provider 35 y/o at 39 wga w/ ROSITA by LMP c/w 1st tri US presents to L&D w/ c/o LOF since 1030 this evening. +FM and ctx that began after LOF, denies VB. PNI: Breech, failed ECV CF carrier, FOB neg Past [facility] Hx: G1 2017 at 40 wks G2 SAB G3 current Menarche 15, q27-29d cycles Denies hx STIs 03/2020 neg cytology, denies hx abnl pap Admission Exam (Per Admitting) Constitutional WD/WN, vitals as above Respiratory normal respiratory effort; no respiratory distress and no labored breathing Psychiatric A+Ox3, euthymic affect Genitourinary OB Exam Abdomen: + breech (confirmed by BSUS) Manual OB Exam: + cervical dilation + 3 cm, + cervical effacement + 50%, + station + -2 and + amniotic fluid (SSE + nitrazine, pooling, ferning) OB Exam Monitor Tracing: + external FHT monitor used, + external uterine monitor used (q10) and + category I (125/mod/+accel/-decel) Discharge Data Consultations 05/24/21 00:29 Consult Anesthesiology Stat Procedures Performed Operation Date: 05/24/21 00:25 Actual Procedures p Section in - Janina Whiteside MD Hospital Course (1) : Patient was admitted and diagnosed with SROM. Given breech presentation, recommendation was for the above listed procedure. See operative report for details. course was uncomplicated and she was discharged home on POD2 Coding Level of Care Code None Diagnoses Z34.90
== END 2021-05-26 11:00 | disposition home or self-care (01) | DRG 788 ==
LOC: OPB 23:34 → 4S1 23:35 → 4S2 05-24 06:07